=== PATIENT | female | born 1985 | race Hispanic/Latino ===

== ENCOUNTER 2017-05-22 18:42 | Emergency (ER) | payer SELFPAY ==
[~2017-05-22 18:42] MED LIST: ISOVUE-370 76%-LOCM 1 ML ONE
[2017-05-22 19:05] LABS: Bilirubin Negative (Negative); Blood, Urine Negative (Negative); Clarity CLEAR (Clear); Glucose, Urine (Dipstick) Negative (Negative); Leukocyte Negative (Negative); Nitrite Negative (Negative); Protein, Urine (Dipstick) Negative (Neg-Trace); Specific Gravity, Urine 1.027 (1.002-1.036); Urobilinogen 0.2 mg/dL (0.2-1.0); pH, Urine 5.5 (5.0-9.0)
[2017-05-22 19:09] LABS: Pregnancy Test - Urine (BHCG) Negative (Negative); Pregu Control Background? CLEAR/WHITE (CLR/WHITE); Pregu Control Bar Appear? YES (CONTROL BAR); Specific Gravity 1.027 (1.002-1.036)
[2017-05-22 19:30] LABS: #Basophils 0.1 thou/uL (0.0-0.2); #Eosinphils 0.1 thou/uL (0.0-0.7); #Lymphocytes 3.4 thou/uL (1.20-3.40); #Monocytes 0.7 thou/uL (0.11-0.59); #Neutrophils 7.6 thou/uL (1.40-6.50); %Eosinophils 0.6 % (0.0-10.0); %Lymphocytes 28.2 % (21.0-51.0); %Monocytes 5.8 % (0.0-10.0); %Neutrophils 64.4 % (42.0-75.0); Mean Corpuscular HGB CONC 34.1 g/dL (32.0-36.0); Mean Corpuscular Hemoglobin 29.1 pg (27.0-31.0); Mean Corpuscular Volume 85.3 fl (81.0-99.0); Mean Platelet Volume 6.6 fL (7.4-10.4); Platelet Count 277 thou/uL (130-400); RBC Distribution Width 11.5 % (11.5-14.5); Red Blood Cell (RBC) Count 4.48 mill/uL (4.20-5.40); White Blood Cell (WBC) Count 11.8 thou/uL (4.8-10.8)
[2017-05-22 19:56] LABS: ALT (SGPT) 21 U/L (8-55); AST (SGOT) 20 U/L (5-34); Albumin 4.3 g/dL (3.5-5.0); Alkaline Phosphatase 99 U/L (40-150); Anion Gap 14 mmol/L (10-20); BUN (Urea Nitrogen) 10 mg/dL (7.0-18.7); Bilirubin, Total 0.3 mg/dL (0.2-1.2); Calc. Creatinine Clearance 0 mL/min (70-130); Calcium 9.5 mg/dL (7.8-10.44); Carbon Dioxide 21 mmol/L (22-29); Chloride 104 mmol/L (98-107); Estimated GFR-MDRD Greater than 90; Glucose 131 mg/dL (70-105); Lipase 13 U/L (8-78); Potassium 3.6 mmol/L (3.5-5.1); Protein, Total 8.3 g/dL (6.0-8.3); Sodium 135 mmol/L (136-145)
--- NOTE | 2017-05-22 22:18 | CT ---
CT ABDOMEN AND PELVIS WITH IV CONTRAST 05/22/17 HISTORY: Right flank pain with nausea. Urinary frequency. COMPARISON: None available. FINDINGS: The lung bases, liver, spleen, pancreas, bilateral adrenal glands, kidneys and incompletely distended urinary bladder demonstrate a normal CT appearance. There is decreased attenuation in the endometrial canal which may be related to fluid. This may be re lated to the stage of the patient's menstrual cycle. Clinical correlation is recommended. Small portion of the appendix is visualized and does appear normal in caliber. Adnexal structures have a grossly normal CT appearance. There is no free fluid, fluid collection or lymphadenopathy seen in the abdomen or pelvis. No dilated loops of small bowel are seen. There is a small to moderate amount of retained fecal mater ial seen within the colon extending from the cecum to mid transverse colon. IMPRESSION: No acute findings are seen in the abdomen or pelvis. POS: [facility]
== END 2017-05-22 20:44 | disposition home or self-care (01) ==
LOC: ERS 18:42
DX: R10.11 Right upper quadrant pain (principal); R10.31 Right lower quadrant pain; F41.9 Anxiety disorder, unspecified
CPT/HCPCS: 74177; 80053; 81003; 81025; 83690; 85025

== ENCOUNTER 2017-05-26 16:48 | Emergency (ER) | payer SELFPAY ==
[2017-05-26 19:39] LABS: Bilirubin Negative (Negative); Blood, Urine Negative (Negative); Clarity CLOUDY (Clear); Glucose, Urine (Dipstick) 100 mg/dL (Negative); Leukocyte Moderate (Negative); Nitrite Negative (Negative); Protein, Urine (Dipstick) Trace mg/dL (Neg-Trace); Specific Gravity, Urine 1.029 (1.002-1.036); Urobilinogen 0.2 mg/dL (0.2-1.0)
[2017-05-26 19:42] LABS: Bacteria/HPF 1+ HPF (None Seen); WBC/HPF 21-50 HPF (0-3)
[2017-05-26 19:58] LABS: Pathc Cast-AUWi Flag 2.71 (0-2.49)
[2017-05-26 19:59] LABS: RBC/HPF 0-3 HPF (0-3)
[2017-05-26 20:00] LABS: Other Casts/LPF None Seen LPF (0-3 Hyaline)
== END 2017-05-26 19:45 | disposition home or self-care (01) ==
LOC: ERS 16:48
DX: F41.0 Panic disorder [episodic paroxysmal anxiety] (principal); R51 Headache; Z79.899 Other long term (current) drug therapy
CPT/HCPCS: 81003; 81015; 99283